=== PATIENT | female | born 1990 | race Two or more races ===

== ENCOUNTER 2019-05-17 13:28 | Observation (INO) | payer MEDICAID ==
[~2019-05-17] VITALS: Ht 165.1 cm; Wt 83.0 kg
[~2019-05-17 13:28] MED LIST: PREN-153 OR
[2019-05-17] MEDS ORDERED: LORA5SYP23 PO (14:13)
[2019-05-17] MEDS ORDERED: ACET-1156 PO (14:13)
[2019-05-17] MEDS ORDERED: LACTATED RINGER'S 1,000 ML IV ONE (14:45)
[2019-05-17] MEDS ORDERED: ceFAZolin 1GM 2 GM in D5W 5% 100 ML IV ONE (14:45)
== END 2019-05-17 19:32 | disposition home or self-care (01) | DRG 566 ==
LOC: LDRP 13:28
PROVIDERS: ADMIT Obstetrics & Gynecology; ATTEND Obstetrics & Gynecology
DX: O21.2 Late vomiting of pregnancy (principal); O26.893 Other specified pregnancy related conditions, third trimester; J40 Bronchitis, not specified as acute or chronic; O99.513 Diseases of the respiratory system complicating pregnancy, third trimester; R51 Headache; Z3A.37 37 weeks gestation of pregnancy
CPT/HCPCS: 59025; 76815; 81002; 96361; 96365; G0378; J0690; J7060; 96366

== ENCOUNTER 2019-05-30 06:08 | Inpatient (IN) | payer MEDICAID ==
[~2019-05-30] VITALS: Ht 165.1 cm; Wt 83.0 kg
[~2019-05-30 06:08] MED LIST changes: +ACET-1156 PO; +LORA5SYP23 PO
[2019-05-30] MEDS ORDERED: LACTATED RINGER'S 1,000 ML IV SCH (07:02)
[2019-05-30] MEDS ORDERED: DERMOPLAST 60ML BOTTLE TOP PRN (07:15)
[2019-05-30] MEDS ORDERED: LIDOCAINE 1% (LOCAL ANESTH.) PF 5ml SDV IJ ONE (07:15)
[2019-05-30] MEDS ORDERED: PHISODERM TOP SOLN 240ML BTL TOP PRN (07:15)
[2019-05-30] MEDS ORDERED: NALBUPHINE HCL 10 MG/1ml INJECTION IM PRN (07:15)
[2019-05-30] MEDS ORDERED: WITCH HAZEL-GLYCERIN PAD TOP PRN (07:15)
[2019-05-30] MEDS ORDERED: PENICILLIN G POT 5MIL/D5 50ML 50 ML IV ONE (07:15)
[2019-05-30] MEDS ORDERED: LACT. RINGERS/OXYTOCIN 20UNITS 1,000 ML IV ONE (07:18)
[2019-05-30] MEDS ORDERED: LACT. RINGERS/OXYTOCIN 20UNITS 1,000 ML IV SCH (07:20)
[2019-05-30] MEDS ORDERED: LIDOCAINE 2%HCL (LOCAL ANESTH.) INJ 20ML MDV ONE (07:23)
[2019-05-30] MEDS ORDERED: LIDOCAINE 2%HCL (LOCAL ANESTH.) INJ 20ML MDV ID ONE (07:30)
[2019-05-30 07:36] LABS: Basophils # (auto) 0.1 uL; Basophils % (auto) 0.5 % (0.0-2.0); Eosinophils # (auto) 0 uL; Eosinophils % (auto) 0.2 % (0.0-7.0); Hematocrit 37.5 % (36.0-46.0); Hemoglobin 12.6 g/dL (12.2-16.2); Lymphocytes # (auto) 1.4 uL; Lymphocytes % (auto) 11.4 % (10.0-50.0); Mean Corpuscular Hemoglobin 30.5 pg (28.0-32.0); Mean Corpuscular Hgb Conc. 33.6 g/dL (32.0-36.0); Mean Corpuscular Volume 90.9 fL (80.0-100.0); Monocytes # (auto) 0.8 uL; Monocytes % (auto) 6.4 % (0.0-12.0); Neutrophils # (auto) 10.3 uL; Neutrophils % (auto) 81.5 % (37.0-80.0); Platelet Count (auto) 292 10^3/uL (140-450); Red Blood Cells 4.12 10^6/uL (4.0-5.20); Red Cell Distribution Width 13.1 % (11.8-14.3); White Blood Cell 12.6 10^3/uL (4.4-10.8)
[2019-05-30] MEDS ORDERED: LACT. RINGERS/OXYTOCIN 20UNITS 500 ML IV ONE (07:46)
[2019-05-30 07:54] LABS: Potassium 3.5 mmol/L (3.5-5.1)
[2019-05-30 07:55] LABS: Albumin 2.7 g/dL (3.4-5.0); Calcium 8.3 mg/dL (8.5-10.1); INR 0.94 (0.9-1.15); Partial Thromboplastin Time 27.9 sec (23.64-32.05)
[2019-05-30 07:59] LABS: BUN/Creatinine Ratio 9.3; Bilirubin, Total 0.3 mg/dL (0.2-1.0); Total Protein 7.1 g/dL (6.4-8.2)
[2019-05-30] MEDS ORDERED: ACETAMINOPHEN 325 MG TAB PO PRN (08:00)
[2019-05-30 09:04] LABS: Urine Bacteria FEW /hpf (None Seen); Urine Blood 1+ /uL (Negative); Urine Specific Gravity 1.004 (1.001-1.035); Urine WBC 24 /hpf (0 - 5)
[2019-05-30 09:16] LABS: Alcohol, Urine < 3.0 mg/dL (0-5); Amphetamine Screen, Urine NEGATIVE (NEGATIVE); Barbiturate Scree,Urine NEGATIVE (NEGATIVE); Benzodiazephine Screen, Urine NEGATIVE (NEGATIVE); Cannabinoid Screen, Urine NEGATIVE (NEGATIVE); Cocaine Screen, Urine NEGATIVE (NEGATIVE); Opiate Scree,Urine NEGATIVE (NEGATIVE); Phencyclidine Screen, Urine NEGATIVE (NEGATIVE)
--- NOTE | 2019-05-30 09:38 | NUR ---
Ambulation: Patient OOB with standby assistance by RN. Patient ambulated to bathroom with steady gait. Patient able to void without difficulty 400 ml output noted. [facility] teaching provided with returned demonstration by patient. Clean gown provided and bed linen changed. Patient ambulated back to bed with steady gait and no distress noted.
[2019-05-30 10:52] VITALS: BP 92/55
--- NOTE | 2019-05-30 11:06 | NUR ---
REPORT RECEIVED ON STABLE PT.
--- NOTE | 2019-05-30 11:06 | NUR ---
Report given to Chikis Hines RN
[2019-05-30] MEDS ORDERED: PENICILLIN G POTASSIUM 2,500,000 UNITS in D5W 5% 50 ML IV SCH (11:15)
[2019-05-30 15:00] VITALS: BP 117/56
[2019-05-30] MEDS: IBUPROFEN 600 MG TAB PO PRN (16:34)
--- NOTE | 2019-05-30 19:00 | NUR ---
Teaching: Discussed benefits of and risks associated with not . Discussed different positions, proper latch, feeding cues, and baby-led . Provided information of medication side effects related to . All questions and concerns addressed at this time. Patient verbalized understanding of information.
[2019-05-30 19:02] VITALS: BP 96/55
[2019-05-30 23:00] VITALS: BP 102/57
[2019-05-31 03:00] VITALS: BP 99/51
[2019-05-31] MEDS: IBUPROFEN 600 MG TAB PO PRN (04:57)
[2019-05-31 06:06] LABS: RPR Non Reactive (Non Reactive)
[2019-05-31 06:40] VITALS: BP 101/61
[2019-05-31 11:30] VITALS: BP 103/65
--- NOTE | 2019-05-31 12:40 | NUR ---
Discharge: Discharge instructions given as ordered. Pt encouraged to follow up with TECHNICIAN TRAINEE as instructed. All questions and concerns addressed. Patient verbalized understanding. Medication reconciliation completed and copy given to patient. Patient encouraged to prepare to depart unit.
--- NOTE | 2019-05-31 13:55 | NUR ---
Discharge: Patient taken to vehicle ambulatory via steady gait, pt declined wheelchair with all personal belongings, accompanied by staff and spouse. No distress noted at time of departure, no adverse changes in status since initial assessment.
== END 2019-05-31 13:55 | disposition home or self-care (01) | DRG 560 ==
LOC: LDRP 06:08 → OBSVTOIN 06:08 → LDRP 06:35
PROVIDERS: ADMIT Specialist; ATTEND Specialist
PROC: 10E0XZZ Delivery of Products of Conception, External Approach (ICD-10-PCS; principal; 2019-05-30)
DX: O62.3 Precipitate labor (principal); O69.1XX0 Labor and delivery complicated by cord around neck, with compression, not applicable or unspecified; O77.0 Labor and delivery complicated by meconium in amniotic fluid; Z37.0 Single live birth; Z3A.39 39 weeks gestation of pregnancy
CPT/HCPCS: 36415; 59025; 59409; 80053; 80307; 81001; 81002; 84112; 85025; 85610; 85730; 86592; 86850; 86900; 86901; 96365; 96366; G0378; J2540; J2590; J7060

== ENCOUNTER → 2022-03-03 | Outpatient (CLI) | payer MEDICAID ==
[~2022-03-03] MED LIST changes: -PREN-153 OR; +PREN1TAB71 OR
[2022-03-03 12:03] LABS: Hematocrit 39.2 % (36.0-46.0); Hemoglobin 12.6 g/dL (12.2-16.2); Mean Corpuscular Hemoglobin 28.4 pg (28.0-32.0); Mean Corpuscular Hgb Conc. 32.3 g/dL (32.0-36.0); Mean Corpuscular Volume 87.9 fL (80.0-100.0); Red Blood Cells 4.46 10^6/uL (4.0-5.20); Red Cell Distribution Width 13.8 % (11.8-14.3); White Blood Cell 8.5 10^3/uL (4.4-10.8)
[2022-03-03 12:37] LABS: Basophils % (manual) 0 (0.0-2.0); Blast Cells 0; Myelocytes % 0; Promyelocytes % 0; Reactive Lymphocytes 0
[2022-03-03 13:05] LABS: Band Neutrophils % (manual) 8; Eosinophils % (manual) 5 (0-7); Lymphocytes % (manual) 15 (10.0-50.0); Metamyelocytes % 1; Monocytes % (manual) 4 (0-12)
[2022-03-04 06:06] LABS: RPR Non Reactive (Non Reactive)
== END | disposition home or self-care (01) ==
LOC: LAB 11:07
PROVIDERS: ATTEND Obstetrics & Gynecology
DX: Z34.80 Encounter for supervision of other normal pregnancy, unspecified trimester (principal); Z31.430 Encounter of female for testing for genetic disease carrier status for procreative management; Z36.0 Encounter for antenatal screening for chromosomal anomalies; N39.0 Urinary tract infection, site not specified; Z3A.00 Weeks of gestation of pregnancy not specified
CPT/HCPCS: 36415; 83036; 84112; 84702; 85007; 85027; 86592; 86703; 86762; 86850; 86900; 86901; 87086; 87340

== ENCOUNTER → 2022-07-25 | Outpatient (CLI) | payer MEDICAID ==
[2022-07-25 09:30] LABS: Basophils # (auto) 0 10 ^3/uL (0-0.2); Basophils % (auto) 0.2 % (0.0-2.0); Eosinophils # (auto) 0 10 ^3/uL (0-0.8); Eosinophils % (auto) 0.2 % (0.0-7.0); Hematocrit 36.9 % (36.0-46.0); Hemoglobin 12.4 g/dL (12.2-16.2); Lymphocytes % (auto) 10.7 % (10.0-50.0); Mean Corpuscular Hemoglobin 30.7 pg (28.0-32.0); Mean Corpuscular Hgb Conc. 33.8 g/dL (32.0-36.0); Monocytes # (auto) 0.4 10 ^3/uL (0-1.3); Monocytes % (auto) 4.1 % (0.0-12.0); Neutrophils % (auto) 84.8 % (37.0-80.0); Red Blood Cells 4.05 10^6/uL (4.0-5.20); Red Cell Distribution Width 13.8 % (11.8-14.3); White Blood Cell 9.4 10^3/uL (4.4-10.8)
== END | disposition home or self-care (01) ==
LOC: LAB 09:09
PROVIDERS: ATTEND Obstetrics & Gynecology
DX: Z34.80 Encounter for supervision of other normal pregnancy, unspecified trimester (principal); Z3A.00 Weeks of gestation of pregnancy not specified
CPT/HCPCS: 36415; 82951; 83036; 85025

== ENCOUNTER 2025-01-31 16:23 | Inpatient (IN) | payer MEDICAID ==
[~2025-01-31] VITALS: Ht 167.6 cm; Wt 52.7 kg
[~2025-01-31 16:23] MED LIST changes: -ACET-1156 PO; +ACET-1881 PO
--- NOTE | 2025-01-31 16:37 | ED.PDOC ---
History of Present Illness HPI Comments 35 year old female presents to the ED via EMS with a chief complaint of near syncope onset today (01/31/25). Per EMS, patient was in school line, waiting to brick picker child from school when she began seeing spots, felt lightheaded, sat down. School staff gave patient water, slight improvement of symptoms. Patient has stage 4 colon cancer, had a colon resection May 2024. Currently on chemotherapy, last chemo was 12/31/24. No other symptoms or modifying factors present at this time. Time Seen by MD: 16:30 Primary Care Provider: FILIBERTO Reviewed Notes: Medications, Allergies Allergies: Coded Allergies: Prochlorperazine (Verified Allergy, Intermediate, 01/31/25) Home Meds Reported Medications Acetaminophen (Acetaminophen) 325 Mg Tab, 325 MG PO Q4HP PRN for MILD PAIN for 30 Days, MG 0 Refills 05/17/19 Loratadine (Claritin) 5 Mg/5 Ml Syp, 5 ML PO DAILY, #150 ML 2 Refills 05/17/19 Vit W/ Ferrous Fumara (PNV PLUS MULTIVI) Plus Tab, 1 OR, TAB 03/26/16 Information Source: Patient, Emergency Med Personnel Mode of Arrival: EMS Severity: Moderate Timing: Hours Duration: Since onset Prehospital treatment: None Past Medical History PAST MEDICAL HISTORY: Cancer Surgical History (Other): colon resection CORRECTIONS CASEWORKER History: No Pertinent CORRECTIONS CASEWORKER History Family History Family History: Unknown Social History Smoker: Non-Smoker Alcohol: Denies ETOH Use Drugs: Denies Drug Use Lives In: Home Constitutional: denies: chills, diaphoresis, fatigue, fever, malaise, sweats, weakness, others EENTM: denies: blurred vision, double vision, ear bleeding, ear discharge, ear drainage, ear pain, ear ringing, eye pain, eye redness, hearing loss, mouth pain, mouth swelling, nasal discharge, nose bleeding, nose congestion, nose pain, photophobia, tearing, throat pain, throat swelling, voice changes, others Respiratory: denies: cough, hemoptysis, orthopnea, SOB at rest, shortness of breath, SOB with excertion, stridor, wheezing, others Cardiovascular: denies: chest pain, dizzy spells, diaphoresis, Dyspnea on exertion, edema, irregular heart beat, left arm pain, lightheadedness, palpitations, PND, syncope, others Gastrointestinal: denies: abdomen distended, abdominal pain, blood streaked bowels, constipated, diarrhea, dysphagia, difficulty swallowing, hematemesis, melena, nausea, poor appetite, poor fluid intake, rectal bleeding, rectal pain, vomiting, others Genitourinary: denies: abnormal vagina bleeding, burning, dyspareunia, dysuria, flank pain, frequency, hematuria, incontinence, pain, , vagina discharge, urgency, others Neurological: reports: others (syncope); denies: dizziness, fainting, headache, left sided numbness, left sided weakness, numbness, paresthesia, pre-existing deficit, right sided numbness, right sided weakness, seizure, speech problems, tingling, tremors, weakness Musculoskeletal: denies: back pain, gout, joint pain, joint swelling, muscle pain, muscle stiffness, neck pain, others Integumetry: denies: bruises, change in color, change in hair/nails, dryness, laceration, lesions, lumps, rash, wounds, others Allergic/Immunocompromised: denies: Difficulty Healing, Frequent Infections, Hives, Itching, others Hematologic/Lymphatic: denies: anemia, blood clots, easy bleeding, easy bruising, swollen glands, others Endocrine: denies: excessive hunger, excessive sweating, excessive thirst, excessive urination, flushing, intolerance to cold, intolerance to heat, unexplained weight gain, unexplained weight loss, others Psychiatric: denies: anxiety, bipolar disorder, depression, hopeless, panic disorder, schizophrenia, sleepless, suicidal, others All Other Systems: Reviewed and Negative Physical Exam General Appearance: Moderate Distress, Normal HEENT: Normal ENT Inspection, Pharynx Normal, TMs Normal Neck: Full Range of Motion, Non-Tender, Normal, Normal Inspection Respiratory: Chest Non-Tender, Lungs Clear, No Accessory Muscle Use, No Respiratory Distress, Normal Breath Sounds Cardiovascular: No Edema, No JVD, No Murmur, No Gallop, Normal Peripheral Pulses, Regular Rate/Rhythm Breast Exam: Deferred Gastrointestinal: No Organomegaly, Non Tender, No Pulsatile Mass, Normal Bowel Sounds, Soft Genitalia: Deferred Pelvic: Deferred Rectal: Deferred Extremities: No calf tenderness, Normal capillary refill, Normal inspection, Normal range of motion, Non-tender, No pedal edema Musculoskeletal : Apperance: Normal Neurologic: Alert, nutrition aides teacher II-XII nml as Tested, No Motor Deficits, Normal Affect, Normal Mood, No Sensory Deficits Cerebellar Function: Normal Reflexes: Normal Skin: Dry, Normal Color, Warm Peripheral Pulses: 3+ Radial (R), 3+ Radial (L) Lymphatic: No Adenopathy Was a procedure done? Was a procedure done?: No EKG EKG : Pulse Rate (adult): 80 Cardiac Rhythm: NSR Differential Dx Considerations may include: Anemia Electrolyte imbalance X-Ray, Labs, Meds, VS Vital Signs Date Time Temp Pulse Resp B/P (MAP) Pulse Ox O2 Delivery O2 Flow Rate FiO2 01/31/25 17:35 97.9 92 20 111/72 (85) 99 97.9 01/31/25 17:35 92 20 99 Room Air 01/31/25 16:40 97.7 84 20 109/72 95 97.7 01/31/25 16:37 80 01/31/25 16:30 82 Lab Test 01/31/25 17:05 Range/Units White Blood Count 8.3 4.4-10.8 10^3/uL Red Blood Count 4.64 4.0-5.20 10^6/uL Hemoglobin 11.6 L 12.2-16.2 g/dL Hematocrit 35.3 L 36.0-46.0 % Mean Corpuscular Volume 76.1 L 80.0-100.0 fL Mean Corpuscular Hemoglobin 25.0 L 28.0-32.0 pg Mean Corpuscular Hemoglobin Concent 32.9 32.0-36.0 g/dL Red Cell Distribution Width 23.1 H 11.8-14.3 % Platelet Count 324 140-450 10^3/uL Mean Platelet Volume 7.0 6.9-10.8 fL Neutrophils (%) (Auto) 76.6 37.0-80.0 % Lymphocytes (%) (Auto) 16.2 10.0-50.0 % Monocytes (%) (Auto) 5.7 0.0-12.0 % Eosinophils (%) (Auto) 1.0 0.0-7.0 % Basophils (%) (Auto) 0.5 0.0-2.0 % Neutrophils # (Auto) 6.4 1.6-8.6 10 ^3/uL Lymphocytes # (Auto) 1.3 0.4-5.4 10 ^3/uL Monocytes # (Auto) 0.5 0-1.3 10 ^3/uL Eosinophils # (Auto) 0.1 0-0.8 10 ^3/uL Basophils # (Auto) 0 0-0.2 10 ^3/uL Nucleated Red Blood Cells 0.0 % Sodium Level 140 136-145 mmol/L Potassium Level 3.8 3.5-5.1 mmol/L Chloride Level 105 98-107 mmol/L Carbon Dioxide Level 27 20-31 mmol/L Anion Gap 8 5-15 Blood Urea Nitrogen Pending Creatinine Pending Glomerular Filtration Rate Calc Pending BUN/Creatinine Ratio Pending Serum Glucose Pending Calcium Level 9.4 8.7-10.4 mg/dL Troponin I High Sensitivity Pending Current Medications Medications (Trade) Dose Ordered Sig/Rex Route Start Time Stop Time Status Last Admin Sodium Chloride 1,000 ml @ 1,000 mls/hr Q1H ONCE IV 01/31/25 16:45 01/31/25 17:44 01/31/25 17:38 Patient alert. Possible syncope. Vitals stable. Answering questions. Possible dehydration. Establish intravenous access. Was given fluids. Explained to the patient. Was told to follow up with her primary care physician. Was told to come back if there is any problem. Followed by night physician. Time of 1ST Reevaluation: 17:00 Reevaluation 1ST: Unchanged Patient Education/Counseling: Diagnosis, Treatment, Prognosis Family Education/Counseling: No Family Present SEPSIS Sepsis Screen Physician Orders Head Without Contrast (01/31/25 16:33) Troponin-I Hs (01/31/25 16:33) Urinalysis (01/31/25 16:33) Basic Metabolic Panel (01/31/25 16:33) Sodium Chloride 0.9% (01/31/25 16:45) Troponin-I Hs (01/31/25 17:33) Troponin-I Hs (01/31/25 19:33) Electrocardigram (01/31/25 16:34) Saline Lock (01/31/25 16:59) Vital Signs Date Time Temp Pulse Resp B/P (MAP) Pulse Ox O2 Delivery O2 Flow Rate FiO2 01/31/25 17:35 97.9 92 20 111/72 (85) 99 97.9 01/31/25 17:35 92 20 99 Room Air 01/31/25 16:40 97.7 84 20 109/72 95 97.7 01/31/25 16:37 80 01/31/25 16:30 82 Laboratory Tests Test 01/31/25 17:05 White Blood Count 8.3 10^3/uL (4.4-10.8) Medications Medications Dose Ordered Sig/Rex Route Start Time Stop Time Status Last Admin Dose Admin Sodium Chloride 1,000 ml @ 1,000 mls/hr Q1H ONCE IV 01/31/25 16:45 01/31/25 17:44 01/31/25 17:38 Departure 1 Departure Time of Disposition: 16:50 Impression: Primary Impression: Dehydration Disposition: 01 HOME / SELF CARE / HOMELESS Condition: Good Discharged With: Self Critical Care Note Critical Care Time?: No Stability Stability form required: No Heart Score Heart Score: Heart Score Response (Comments) Value History Slightly Suspicious 0 EKG Normal 0 Age <45 0 Risk Factors No known risk factors 0 Troponin Normal limit 0 Total 0 I personally scribed for PREET HATFIELD MD ([email or web address]) on 01/31/25 at 16:37. Electronically submitted by Tereza Morillo ([email or web address]). PREET HATFIELD MD Jan 31, 2025 16:37
[2025-01-31 17:21] LABS: Hemoglobin 11.6 g/dL (12.2-16.2); Nucleated Red Blood Cells % 0.0 %
[2025-01-31 17:23] LABS: Hematocrit 35.3 % (36.0-46.0); Mean Corpuscular Hemoglobin 25.0 pg (28.0-32.0); Mean Corpuscular Volume 76.1 fL (80.0-100.0)
[2025-01-31 17:28] LABS: Chloride 105 mmol/L (98-107); Potassium 3.8 mmol/L (3.5-5.1); Sodium 140 mmol/L (136-145)
[2025-01-31 17:29] LABS: Anion Gap 8 (5-15); Carbon Dioxide 27 mmol/L (20-31)
[2025-01-31 17:30] LABS: Calcium 9.4 mg/dL (8.7-10.4)
[2025-01-31 17:35] LABS: BUN/Creatinine Ratio 13.2 (10.0-20.0); Blood Urea Nitrogen 14 mg/dL (9-23); Glucose 88 mg/dL (74-106)
[2025-01-31] MEDS: SODIUM CHLORIDE 0.9% 1,000 ML IV ONE ×2 (17:38→22:17)
--- NOTE | 2025-01-31 17:38 | DVH ---
EXAM: CT HEAD WITHOUT CONTRAST INDICATION: syncope TECHNIQUE: CT of the head without intravenous contrast. Radiation Dose Information: CT Dose: CTDI volume is 50.4 mGy. Dose-length product is 807.76 mGy*cm The dose indicators for CT are the volume Computed Tomography (CT) Dose Index (CTDIvol) and the Dose Length Product (DLP), and are measured in units of mGy and mGy-cm, respectively. These indicators are not patient dose, but values generated from the CT scanner acquisition factors. The report includes radiation exposure data for exposures received during this examination. COMPARISON: None FINDINGS: There is no evidence of acute intracranial hemorrhage, extra-axial collection, mass effect, midline s hift, herniation or hydrocephalus. The ventricles, sulci and cisterns are age appropriate. The coreas-white differentiation is intact. Patchy periventricular and subcortical white matter hypoattenuation is nonspecific but may be related to small vessel ischemic disease. Minimal mucosal thickening anterior wall right maxillary sinus and mastoid air cells are clear. The surrounding soft tissues and osseous structures are unremarkable. IMPRESSION: 1. No acute intracranial abnormality.
[2025-01-31 19:34] LABS: Urine Protein, UAD Negative (Negative)
--- NOTE | 2025-01-31 19:54 | DVHHP2 ---
Admitting Diagnosis: Syncope History of Present Illness 35 year old female presents to the ED via EMS with a chief complaint of near syncope onset today (01/31/25). Per EMS, patient was in school line, waiting to hop picker child from school when she began seeing spots, felt lightheaded, sat down. School staff gave patient water, slight improvement of symptoms. Patient has stage 4 colon cancer, had a colon resection May 2024. Currently on chemotherapy, last chemo was 12/31/24. No other symptoms or modifying factors present at this time. PAST MEDICAL HISTORY: Cancer Surgical History (Other): colon resection NURSE MIDWIFE/CLINICAL INSTRUCTOR History: No Pertinent NURSE MIDWIFE/CLINICAL INSTRUCTOR History Family History Family History: Unknown Social History Smoker: Non-Smoker Alcohol: Denies ETOH Use Drugs: Denies Drug Use Lives In: Home Patient Family History: Patient reports no known family medical history. Allergies: Coded Allergies: Prochlorperazine (Verified Allergy, Intermediate, 01/31/25) Home Meds Reported Medications Acetaminophen (Acetaminophen) 325 Mg Tab, 325 MG PO Q4HP PRN for MILD PAIN for 30 Days, MG 0 Refills 05/17/19 Loratadine (Claritin) 5 Mg/5 Ml Syp, 5 ML PO DAILY, #150 ML 2 Refills 05/17/19 Vit W/ Ferrous Fumara (PNV PLUS MULTIVI) Plus Tab, 1 OR, TAB 03/26/16 Current Medications Current Medications Medications (Trade) Dose Ordered Sig/Rex Route PRN Reason Start Time Stop Time Status Last Admin Sodium Chloride (Saline Lock Ns) 10 ml Q8HR IV 01/31/25 22:00 UNV Docusate Sodium (Colace Capsule) 100 mg BIDPRN PRN PO FOR CONSTIPATION 01/31/25 20:30 UNV Acetaminophen (Tylenol Tablet) 650 mg Q6HP PRN PO PAIN SCALE 1-3 OR TEMP>100.4 01/31/25 20:30 UNV Acetaminophen/ Hydrocodone Bitart ([place] 5/325MG Tab) 1 tab Q4HP PRN PO MODERATE PAIN (4-6 PAIN SCALE) 01/31/25 20:30 UNV Ondansetron HCl (Zofran) 4 mg Q4HP PRN IV NAUSEA / VOMITING 01/31/25 20:30 UNV Enoxaparin Sodium (Lovenox) 40 mg DAILY SC 02/01/25 10:00 UNV Vital Signs Vital Signs Date Time Temp Pulse Resp B/P (MAP) Pulse Ox O2 Delivery O2 Flow Rate FiO2 01/31/25 17:35 97.9 92 20 111/72 (85) 99 97.9 01/31/25 17:35 Room Air Physical Exam gen 35 y.o. woman, sitting on chair. No apparent distress HEENT-atraumatic, normocephalic Heart-regular rate and rhythm Lungs clear to auscultate Abdomen soft, nontender nondistended Musculoskeletal-no edema cyanosis Neuro-AO x3, no focal deficit SEPSIS Sepsis Screen Date sepsis recognized/suspect: Jan 31, 2025 Time Sepsis recognized/suspect: 1644 Recent Procedure: No On Antibiotic Therapy: No Respiratory Rate >20: No Heart Rate >90: No Temp<36 C (96.8 F) or >38.3 C: No SBP <90 or MAP <65 mmHG: No New Acute Mental Status Change: No Is the patient on CPAP, BIPAP,: No Physician Orders Head Without Contrast (01/31/25 16:33) Troponin-I Hs (01/31/25 19:33) Electrocardigram (01/31/25 16:34) Saline Lock (01/31/25 16:59) Brain Head Wo Contrast (01/31/25 20:26) Echo 2d Mode Cardiac Dop (01/31/25 20:26) Carotid Duplx W Color Dop (01/31/25 20:26) * Neurology Consult (01/31/25 20:26) Neuro Checks Per Unit Protocol (01/31/25 20:27) Eeg Awake/Sleep/Act (01/31/25 20:27) Admit (01/31/25 20:27) Code Status (01/31/25 20:27) Vital Signs .PER UNIT PROTOCOL (01/31/25 20:27) Review Orders With Adm.Md (01/31/25 20:27) Encourage Activity As Tolerate (01/31/25 20:27) Regular Diet (02/01/25 Breakfast) Sodium Chloride Lock (Saline Lock Ns) (01/31/25 22:00) Docusate Sodium Capsule (Colace Capsule) (01/31/25 20:30) Acetaminophen Tablet (Tylenol Tablet) (01/31/25 20:30) Notify Md Of Changes From Base (01/31/25 20:27) Advance Directive (01/31/25 20:27) Patient Condition (01/31/25 20:27) Allergies (01/31/25 20:27) Hydrocodone-Acet 5/325mg Tab ([place] 5/32 (01/31/25 20:30) Ondansetron Hcl (Zofran) (01/31/25 20:30) Enoxaparin Sodium (Lovenox) (02/01/25 10:00) Comprehensive Metabolic Panel (02/01/25 05:00) Comprehensive Metabolic Panel (02/02/25 05:00) Comprehensive Metabolic Panel (02/03/25 05:00) Comprehensive Metabolic Panel (02/04/25 05:00) Comprehensive Metabolic Panel (02/05/25 05:00) Complete Blood Count (02/01/25 05:00) Complete Blood Count (02/02/25 05:00) Complete Blood Count (02/03/25 05:00) Complete Blood Count (02/04/25 05:00) Complete Blood Count (02/05/25 05:00) Vital Signs Date Time Temp Pulse Resp B/P (MAP) Pulse Ox O2 Delivery O2 Flow Rate FiO2 01/31/25 17:35 97.9 92 20 111/72 (85) 99 97.9 01/31/25 17:35 92 20 99 Room Air 01/31/25 16:40 97.7 84 20 109/72 95 97.7 01/31/25 16:37 80 01/31/25 16:30 82 Laboratory Tests Test 01/31/25 17:05 White Blood Count 8.3 10^3/uL (4.4-10.8) Medications Medications Dose Ordered Sig/Rex Route Start Time Stop Time Status Last Admin Dose Admin Aspirin 325 mg ONCE ONCE PO 01/31/25 18:00 01/31/25 18:01 DC 01/31/25 18:02 Sodium Chloride 1,000 ml @ 1,000 mls/hr Q1H ONCE IV 01/31/25 16:45 01/31/25 17:44 DC 01/31/25 17:38 Results Labs Test 01/31/25 19:54 01/31/25 17:31 01/31/25 17:05 Range/Units Urine Color Colorless Yellow Urine Clarity Clear Clear Urine pH 6.5 5.0-9.0 Urine Specific [place] 1.003 1.001-1.035 Urine Protein Negative Negative Urine Ketones Negative Negative Urine Blood Negative Negative /uL Urine Nitrite Negative Negative Urine Bilirubin Negative Negative Urine Urobilinogen Normal Negative mg/dL Urine Leukocyte Esterase Negative Negative /uL Urine RBC None seen 0 - 4 /hpf Urine Microscopic WBC 3 0-5 /HPF Urine Squamous Epithelial Cells Mod <5 /hpf Urine Bacteria None seen None Seen /hpf Urine Glucose Normal Normal mg/dL White Blood Count 8.3 4.4-10.8 10^3/uL Red Blood Count 4.64 4.0-5.20 10^6/uL Hemoglobin 11.6 L 12.2-16.2 g/dL Hematocrit 35.3 L 36.0-46.0 % Mean Corpuscular Volume 76.1 L 80.0-100.0 fL Mean Corpuscular Hemoglobin 25.0 L 28.0-32.0 pg Mean Corpuscular Hemoglobin Concent 32.9 32.0-36.0 g/dL Red Cell Distribution Width 23.1 H 11.8-14.3 % Platelet Count 324 140-450 10^3/uL Mean Platelet Volume 7.0 6.9-10.8 fL Neutrophils (%) (Auto) 76.6 37.0-80.0 % Lymphocytes (%) (Auto) 16.2 10.0-50.0 % Monocytes (%) (Auto) 5.7 0.0-12.0 % Eosinophils (%) (Auto) 1.0 0.0-7.0 % Basophils (%) (Auto) 0.5 0.0-2.0 % Neutrophils # (Auto) 6.4 1.6-8.6 10 ^3/uL Lymphocytes # (Auto) 1.3 0.4-5.4 10 ^3/uL Monocytes # (Auto) 0.5 0-1.3 10 ^3/uL Eosinophils # (Auto) 0.1 0-0.8 10 ^3/uL Basophils # (Auto) 0 0-0.2 10 ^3/uL Nucleated Red Blood Cells 0.0 % Sodium Level 140 136-145 mmol/L Potassium Level 3.8 3.5-5.1 mmol/L Chloride Level 105 98-107 mmol/L Carbon Dioxide Level 27 20-31 mmol/L Anion Gap 8 5-15 Blood Urea Nitrogen 14 9-23 mg/dL Creatinine 1.06 H 0.550-1.02 mg/dL Glomerular Filtration Rate Calc 70 >90 mL/min BUN/Creatinine Ratio 13.2 10.0-20.0 Serum Glucose 88 74-106 mg/dL Calcium Level 9.4 8.7-10.4 mg/dL Primary Diagnosis Syncope rule out seizure Elevated troponin rule out ACS Plan Patient is colon cancer currently now on treatments. Check brain MRI to rule out brain Mets Check carotid Doppler to rule out carotid stenosis Check echo of the heart for syncope and elevated troponin Trend troponin until plateau If elevated repeat EKG IV fluids for hydration Neuro check per floor protocol Neurology consult Full code Regular diet DVT prophylaxis No GI prophylaxis needed Plan discussed with: Patient Problems List: (1) Colon cancer (2) Dehydration (3) Dehydration Status: Acute Date of Service: Jan 31, 2025 Billing Provider: ALVIN CHU MD Common Visit Codes: [id number] INP/OBS CARE (HIGH) ALVIN CHU MD Jan 31, 2025 19:54
[2025-01-31] MEDS ORDERED: ONDANSETRON HCL 4 MG/2 ML VIAL IV PRN (20:30)
[2025-01-31] MEDS ORDERED: HYDROcodone-ACET 5/325MG TAB PO PRN (20:30)
[2025-01-31] MEDS ORDERED: DOCUSATE SOD 100 MG CAP PO PRN (20:30)
[2025-01-31] MEDS ORDERED: ACETAMINOPHEN 325 MG TAB PO PRN (20:30)
--- NOTE | 2025-01-31 20:52 | DVH ---
Carotid Duplex Date: 01/31/2025 08:24 PM Clinical History: Syncope Comparison: None Technique: Duplex Doppler evaluation of the extracranial carotid and vertebral arteries including col or Doppler and spectral/pulsed waveform analysis was performed. Findings: RIGHT SIDE: The peak systolic velocities are 86 cm/s in the distal CCA and 0 8 cm/s in the proximal ICA.The ICA/C CA ratio is less than 2. The external carotid artery is patent with peak systolic velocity of 103 cm/s proximally. There is appropriate antegrade flow in the right vertebral artery. LEFT SIDE: The peak systolic velocities are 82 cm/s in the distal CCA and 90 cm/s in the proximal ICA.. The ICA/ CCA ratio is less than 2. The external carotid artery is patent with peak systolic velocity of 66 cm/s proximally. There is appropriate antegrade flow in the left vertebral artery. IMPRESSION: 1. No hemodynamically significant stenosis noted in the right carotid system. 2. No hemodynamically significant stenosis noted in the left carotid system. 3. Reference: Radiology 2003; 229:[id number]
[2025-01-31] MEDS: SODIUM CHLOR 0.9% PF (SALINE LOCK) 10ML VIAL/SYR IV SCH (22:17)
[2025-02-01 04:00] LABS: Hematocrit 32.9 % (36.0-46.0); Hemoglobin 11.2 g/dL (12.2-16.2); Mean Corpuscular Hemoglobin 26.1 pg (28.0-32.0); Mean Corpuscular Volume 76.8 fL (80.0-100.0); Nucleated Red Blood Cells % 0.0 %
[2025-02-01 04:29] LABS: Alanine Aminotransferase 14 U/L (7-40); Albumin 4.3 g/dL (3.2-4.8); Alkaline Phosphatase 87 U/L (46-116); Anion Gap 11 (5-15); BUN/Creatinine Ratio 11.5 (10.0-20.0); Bilirubin, Total 0.7 mg/dL (0.2-1.0); Blood Urea Nitrogen 10 mg/dL (9-23); Calcium 9.2 mg/dL (8.7-10.4); Carbon Dioxide 23 mmol/L (20-31); Chloride 105 mmol/L (98-107); Glucose 93 mg/dL (74-106); Potassium 3.6 mmol/L (3.5-5.1); Sodium 139 mmol/L (136-145); Total Protein 7.5 g/dL (5.7-8.2)
[2025-02-01 11:25] VITALS: BP 96/64; PULSE 81; RESP 16; TEMP 97.5; O2SAT 100
[2025-02-01] MEDS: ENOXAPARIN SOD 40 MG/0.4 ML SYRINGE SC SCH (11:30)
--- NOTE | 2025-02-01 13:02 | DVHPN2 ---
Reviewed: Care Plan, H&P, Labs, Medications, Previous Orders, Radiology Changes from previous H/P or p: No Changes Objective Vitals Vital Signs Date Time Temp Pulse Resp B/P (MAP) Pulse Ox O2 Delivery O2 Flow Rate FiO2 02/01/25 11:25 97.5 81 16 96/64 (75) 100 97.5 01/31/25 17:35 Room Air Intake/Output Intake and Output 02/01/25 07:00 Intake Total 1000 ml Balance 1000 ml Intake IV Total 1000 ml Medications Current Medications Medications Dose Ordered Sig/Rex Route Start Time Stop Time Status Last Admin Dose Admin Sodium Chloride 10 ml Q8HR IV 01/31/25 22:00 02/01/25 06:08 10 ML Docusate Sodium 100 mg BIDPRN PRN PO 01/31/25 20:30 Acetaminophen 650 mg Q6HP PRN PO 01/31/25 20:30 Acetaminophen/ Hydrocodone Bitart 1 tab Q4HP PRN PO 01/31/25 20:30 Ondansetron HCl 4 mg Q4HP PRN IV 01/31/25 20:30 Enoxaparin Sodium 40 mg DAILY SC 02/01/25 10:00 02/01/25 11:30 40 MG Laboratory Results Laboratory Tests 02/01/25 03:38 Chemistry Test 01/31/25 17:05 02/01/25 03:38 Calcium Level 9.4 mg/dL (8.7-10.4) 9.2 mg/dL (8.7-10.4) Albumin 4.3 g/dL (3.2-4.8) Total Protein 7.5 g/dL (5.7-8.2) LFT Test 02/01/25 03:38 Alanine Aminotransferase (ALT) 14 U/L (7-40) Alkaline Phosphatase 87 U/L (46-116) Aspartate Amino Transferase (AST) 17 U/L (13-40) Total Bilirubin 0.7 mg/dL (0.2-1.0) Urinalysis Test 01/31/25 17:31 Urine Color Colorless (Yellow) Urine Clarity Clear (Clear) Urine pH 6.5 (5.0-9.0) Urine Specific [place] 1.003 (1.001-1.035) Urine Protein Negative (Negative) Urine Ketones Negative (Negative) Urine Blood Negative /uL (Negative) Urine Nitrite Negative (Negative) Urine Bilirubin Negative (Negative) Urine Urobilinogen Normal mg/dL (Negative) Urine Leukocyte Esterase Negative /uL (Negative) Urine RBC None seen /hpf (0 - 4) Urine Microscopic WBC 3 /HPF (0-5) Urine Squamous Epithelial Cells Mod /hpf (<5) Urine Bacteria None seen /hpf (None Seen) Urine Glucose Normal mg/dL (Normal) Labs and/or images reviewed: Labs reviewed by me, Image(s) reviewed by me Assessment/Plan Assessment/Plan Syncope possibly secondary to dehydrate CT head negative carotid ultrasound negative Acute dehydration patient is refusing IV fluids History of stage IV colon cancer status post colon resection May 2024, currently on chemo last chemo 12/31/2024 Elevated troponin [address]-elevation [place] type 2 Cardiology consult Time spent 48 minutes Plan discussed with: Patient Date of Service: Feb 01, 2025 Billing Provider: FELICIA MCDONNELL MD Common Visit Codes: [id number] INP/OBS CARE(HIGH) FELICIA MCDONNELL MD Feb 01, 2025 13:02
--- NOTE | 2025-02-01 13:10 | DVH ---
CLINICAL INDICATION: Rule out brain metastases, CVA. Indication for recent CT head was syncope. COMPARISON: CT HEAD WITHOUT CONTRAST on DOS: 01/31/25 TECHNIQUE: Multisequence multiplanar MRI images of the brain were obtained without contrast. FINDINGS: No acute infarct or hemorrhage. No mass or midline shift. Small focus of FLAIR hyperintens e signal in the left frontal lobe subcortical white matter measuring up to 0.4 cm. Ventricles and sul ci are within normal limits. Basal cisterns are patent. Cerebellum, brainstem, and midline structures are within normal limits. Paranasal sinuses are clear. Orbits are grossly unremarkable. IMPRESSION: 1. No evidence of acute intracranial abnormality. 2. Small focus of FLAIR hyperintense signal in the left frontal lobe subcortical white matter is nons pecific, may be small focus of chronic microangiopathy or sequelae of migraine headaches or other vas cular phenomena. Demyelinating disease would be less likely, but not excluded in the appropriate clin ical setting. 3. Limited evaluation for brain metastases on noncontrast enhanced exam. No obvious intracranial mass .
--- NOTE | 2025-02-01 14:16 | DVHINCON2 ---
GORDO MIRELES [facility] 02/01/25 1416: Date Seen: Feb 01, 2025 Referring Physician MD Bakari Reason for Consultation Elevated troponin levels History of Present Illness This is a pleasant 35-year-old female who presented to the emergency room via EMS with a chief complaint of near syncopal event. At time of assessment the patient was found A&O x4. The patient reports she was peaking at her son from school and as she was ambulating she developed a sudden onset of visual disturbances associated with dizziness which prompted bystanders to call 911. Denies loss of consciousness. The patient with colorectal cancer stage IV states she had a similar episode of a near syncopal event after her 1st round of chemotherapy on 10/2024 with latest chemotherapy session completed on 12/31/2024. Denies any further dizziness or visual disturbances. Denies chest pain, palpitations, diaphoresis, shortness of breath, or syncopal events. A 12 lead electrocardiogram was obtained at bedside revealing a normal sinus rhythm with a evidence of ischemia. Serial troponin levels peaked at 69 ng/L. Only significant medical history includes colorectal cancer stage IV status post resection with current chemotherapy and follow-up with Oncology at [facility]. Past Medical History Past medical history reviewed. No other significant than mentioned above. Past Surgical History Colon resection, 05/2024 Family History: Patient reports no known family medical history. Family History Family history reviewed. Not significant for cardiovascular disease. Social History Denies the use of illicit drugs, alcohol, or tobacco use. Allergies: Coded Allergies: Prochlorperazine (Verified Allergy, Intermediate, 01/31/25) Home Meds Reported Medications Acetaminophen (Acetaminophen) 325 Mg Tab, 325 MG PO Q4HP PRN for MILD PAIN for 30 Days, MG 0 Refills 05/17/19 Loratadine (Claritin) 5 Mg/5 Ml Syp, 5 ML PO DAILY, #150 ML 2 Refills 05/17/19 Vit W/ Ferrous Fumara (PNV PLUS MULTIVI) Plus Tab, 1 OR, TAB 03/26/16 Home Meds Home medications reviewed. Current Medications Current Medications Medications (Trade) Dose Ordered Sig/Rex Route PRN Reason Start Time Stop Time Status Last Admin Sodium Chloride (Saline Lock Ns) 10 ml Q8HR IV 01/31/25 22:00 02/01/25 14:02 Docusate Sodium (Colace Capsule) 100 mg BIDPRN PRN PO FOR CONSTIPATION 01/31/25 20:30 Acetaminophen (Tylenol Tablet) 650 mg Q6HP PRN PO PAIN SCALE 1-3 OR TEMP>100.4 01/31/25 20:30 Acetaminophen/ Hydrocodone Bitart ([place] 5/325MG Tab) 1 tab Q4HP PRN PO MODERATE PAIN (4-6 PAIN SCALE) 01/31/25 20:30 Ondansetron HCl (Zofran) 4 mg Q4HP PRN IV NAUSEA / VOMITING 01/31/25 20:30 Enoxaparin Sodium (Lovenox) 40 mg DAILY SC 02/01/25 10:00 02/01/25 11:30 Review of Systems Constitutional: No symptom reported Ears, Nose, & Throat: No symptom reported Eyes: No symptom reported Neurological: Dizziness, visual disturbances Pulmonary/Respiratory: No symptom reported Cardiovascular: No symptom reported Gastrointestinal: No symptom reported Genitourinary: No symptom reported Musculoskeletal: No symptom reported Skin: No symptom reported Psychiatric: No symptom reported Endocrine: No symptom reported Hemotologic/Lymphatic: No symptom reported Vital Signs Vital Signs Date Time Temp Pulse Resp B/P (MAP) Pulse Ox O2 Delivery O2 Flow Rate FiO2 02/01/25 11:25 97.5 81 16 96/64 (75) 100 97.5 01/31/25 17:35 Room Air Physical Exam General Appearance: Cooperative. Well developed. Cachectic. In no acute distress Head Exam: Normal inspection Neck Exam: Normal inspection. Non-tender. Normal alignment Pulmonary/Respiratory: Chest non-tender. Clear bilateral breath sounds Cardiovascular/Chest: Regular rate and rhythm. S1, S2. NSR. No murmurs. No JVD. Peripheral Pulses: 2+ Radial (R). 2+ Radial (L). 2+ Pedal (R). 2+ Pedal (L) Abdominal Exam: Normal bowel sounds. Soft. Ankle Exam: Negative ankle edema Lower extremities: Negative lower extremity edema Neuro/Mental Status: A&O x4. Coherent Thoughts/Psych: Normal thought pattern. Appropriate mood and affect. Good judgement and insight Appearance: In no acute distress Skin Exam: Normal inspection. Normal color. Warm. Dry Labs/Diagnostic Data Labs Test 02/01/25 03:38 02/01/25 01:21 01/31/25 17:31 Range/Units White Blood Count 9.8 4.4-10.8 10^3/uL Red Blood Count 4.29 4.0-5.20 10^6/uL Hemoglobin 11.2 L 12.2-16.2 g/dL Hematocrit 32.9 L 36.0-46.0 % Mean Corpuscular Volume 76.8 L 80.0-100.0 fL Mean Corpuscular Hemoglobin 26.1 L 28.0-32.0 pg Mean Corpuscular Hemoglobin Concent 34.1 32.0-36.0 g/dL Red Cell Distribution Width 23.3 H 11.8-14.3 % Platelet Count 268 140-450 10^3/uL Mean Platelet Volume 6.9 6.9-10.8 fL Neutrophils (%) (Auto) 79.1 37.0-80.0 % Lymphocytes (%) (Auto) 13.7 10.0-50.0 % Monocytes (%) (Auto) 6.3 0.0-12.0 % Eosinophils (%) (Auto) 0.5 0.0-7.0 % Basophils (%) (Auto) 0.4 0.0-2.0 % Neutrophils # (Auto) 7.8 1.6-8.6 10 ^3/uL Lymphocytes # (Auto) 1.3 0.4-5.4 10 ^3/uL Monocytes # (Auto) 0.6 0-1.3 10 ^3/uL Eosinophils # (Auto) 0 0-0.8 10 ^3/uL Basophils # (Auto) 0 0-0.2 10 ^3/uL Nucleated Red Blood Cells 0.0 % Sodium Level 139 136-145 mmol/L Potassium Level 3.6 3.5-5.1 mmol/L Chloride Level 105 98-107 mmol/L Carbon Dioxide Level 23 20-31 mmol/L Anion Gap 11 5-15 Blood Urea Nitrogen 10 9-23 mg/dL Creatinine 0.87 0.550-1.02 mg/dL Glomerular Filtration Rate Calc 89 >90 mL/min BUN/Creatinine Ratio 11.5 10.0-20.0 Serum Glucose 93 74-106 mg/dL Calcium Level 9.2 8.7-10.4 mg/dL Total Bilirubin 0.7 0.2-1.0 mg/dL Aspartate Amino Transferase (AST) 17 13-40 U/L Alanine Aminotransferase (ALT) 14 7-40 U/L Alkaline Phosphatase 87 46-116 U/L Total Protein 7.5 5.7-8.2 g/dL Albumin 4.3 3.2-4.8 g/dL Troponin I High Sensitivity 66 *H </=34 ng/L Urine Color Colorless Yellow Urine Clarity Clear Clear Urine pH 6.5 5.0-9.0 Urine Specific [place] 1.003 1.001-1.035 Urine Protein Negative Negative Urine Ketones Negative Negative Urine Blood Negative Negative /uL Urine Nitrite Negative Negative Urine Bilirubin Negative Negative Urine Urobilinogen Normal Negative mg/dL Urine Leukocyte Esterase Negative Negative /uL Urine RBC None seen 0 - 4 /hpf Urine Microscopic WBC 3 0-5 /HPF Urine Squamous Epithelial Cells Mod <5 /hpf Urine Bacteria None seen None Seen /hpf Urine Glucose Normal Normal mg/dL Assessment Near syncopal event Colorectal cancer with chemotherapy NSTEMI, likely type 2 secondary to above Microcytic anemia Plan/Recommendation (Dr. Norton) Highly suspected near syncopal events secondary to chemotherapy. The patient has no risk factors for coronary artery disease, she is cardiac asymptomatic, underwent an unremarkable 12 lead electrocardiogram, and presents with a heart score of 0 points placing her at low risk for major cardiac events. There is no further cardiac workup indicated at this time. Thank you for allowing us to participate in this patient's care. Please call if you have any questions or concerns. This medical document was created using an electronic medical record system with voice recognition software and computerized dictation system. Although this document has been carefully reviewed, there might still be some phonetic and typographical errors. Occasional wrong-word or ``sound-alike substitutions may have occurred due to the inherent limitations of voice recognition software. These areas are purely typographical due to imperfections of the software pr ograms and do not reflect any compromise in the patient's medical care. Please read the chart carefully and recognize, using context, where these substitutions have occurred. Plan discussed with: Patient, Other NYHA Physical activity limitations: NA Date of Service: Feb 01, 2025 Billing Provider: GORDO MIRELES [employer] Card[facility] Common Codes: 25874-[id number] INP/OBS CARE (High) DEBI NORTON MD 02/02/25 1139: Family History: Patient reports no known family medical history. Allergies: Coded Allergies: Prochlorperazine (Verified Allergy, Intermediate, 01/31/25) Home Meds Reported Medications Acetaminophen (Acetaminophen) 325 Mg Tab, 325 MG PO Q4HP PRN for MILD PAIN for 30 Days, MG 0 Refills 05/17/19 Loratadine (Claritin) 5 Mg/5 Ml Syp, 5 ML PO DAILY, #150 ML 2 Refills 05/17/19 Vit W/ Ferrous Fumara (PNV PLUS MULTIVI) Plus Tab, 1 OR, TAB 03/26/16 Plan/Recommendation agree with [facility] assessment and plan Plan discussed with: Patient MIRELES,GORDO FNP Feb 01, 2025 14:16 DEBI NORTON MD Feb 02, 2025 11:39
[2025-02-01] MEDS: SODIUM CHLORIDE 0.9% 500 ML IV ONE (17:33)
--- NOTE | 2025-02-02 08:46 | DVHDS2 ---
Discharge Summary Date of Admission Jan 31, 2025 at 20:27 Date of Discharge: Feb 01, 2025 Admitting Diagnosis Syncope Wounds: None Labs/Diagnostic Data: Laboratory Results Test 02/01/25 03:38 02/01/25 01:21 01/31/25 17:31 White Blood Count 9.8 10^3/uL (4.4-10.8) Red Blood Count 4.29 10^6/uL (4.0-5.20) Hemoglobin 11.2 g/dL (12.2-16.2) Hematocrit 32.9 % (36.0-46.0) Mean Corpuscular Volume 76.8 fL (80.0-100.0) Mean Corpuscular Hemoglobin 26.1 pg (28.0-32.0) Mean Corpuscular Hemoglobin Concent 34.1 g/dL (32.0-36.0) Red Cell Distribution Width 23.3 % (11.8-14.3) Platelet Count 268 10^3/uL (140-450) Mean Platelet Volume 6.9 fL (6.9-10.8) Neutrophils (%) (Auto) 79.1 % (37.0-80.0) Lymphocytes (%) (Auto) 13.7 % (10.0-50.0) Monocytes (%) (Auto) 6.3 % (0.0-12.0) Eosinophils (%) (Auto) 0.5 % (0.0-7.0) Basophils (%) (Auto) 0.4 % (0.0-2.0) Neutrophils # (Auto) 7.8 10 ^3/uL (1.6-8.6) Lymphocytes # (Auto) 1.3 10 ^3/uL (0.4-5.4) Monocytes # (Auto) 0.6 10 ^3/uL (0-1.3) Eosinophils # (Auto) 0 10 ^3/uL (0-0.8) Basophils # (Auto) 0 10 ^3/uL (0-0.2) Nucleated Red Blood Cells 0.0 % Sodium Level 139 mmol/L (136-145) Potassium Level 3.6 mmol/L (3.5-5.1) Chloride Level 105 mmol/L (98-107) Carbon Dioxide Level 23 mmol/L (20-31) Anion Gap 11 (5-15) Blood Urea Nitrogen 10 mg/dL (9-23) Creatinine 0.87 mg/dL (0.550-1.02) Glomerular Filtration Rate Calc 89 mL/min (>90) BUN/Creatinine Ratio 11.5 (10.0-20.0) Serum Glucose 93 mg/dL (74-106) Calcium Level 9.2 mg/dL (8.7-10.4) Total Bilirubin 0.7 mg/dL (0.2-1.0) Aspartate Amino Transferase (AST) 17 U/L (13-40) Alanine Aminotransferase (ALT) 14 U/L (7-40) Alkaline Phosphatase 87 U/L (46-116) Total Protein 7.5 g/dL (5.7-8.2) Albumin 4.3 g/dL (3.2-4.8) Troponin I High Sensitivity 66 ng/L (</=34) Urine Color Colorless (Yellow) Urine Clarity Clear (Clear) Urine pH 6.5 (5.0-9.0) Urine Specific [place] 1.003 (1.001-1.035) Urine Protein Negative (Negative) Urine Ketones Negative (Negative) Urine Blood Negative /uL (Negative) Urine Nitrite Negative (Negative) Urine Bilirubin Negative (Negative) Urine Urobilinogen Normal mg/dL (Negative) Urine Leukocyte Esterase Negative /uL (Negative) Urine RBC None seen /hpf (0 - 4) Urine Microscopic WBC 3 /HPF (0-5) Urine Squamous Epithelial Cells Mod /hpf (<5) Urine Bacteria None seen /hpf (None Seen) Urine Glucose Normal mg/dL (Normal) Other Laboratory Tests 02/01/25 03:38 Brief Hx & Hospital Course: 35-year-old female with a stage IV colorectal cancer status post colon resection May 2024 currently on chemo last chemo came in complaining of syncopal episode. CT head was negative carotid ultrasound negative labs were normal patient has had dehydration patient is refusing IV fluids. Elevated troponin [address]-elevation [place] type 2 cardiology consult was placed. advised the patient has possible syncopal episode secondary to the chemotherapy. The patient left AMA from the ER bed 3. Consequences and complications explained to the patient and she verbalized understanding Consults/Reason for consult Cardiology Operations or Procedures None Condition at Discharge: Fair Final Diagnosis/Problems List Syncope possibly secondary to dehydrate CT head negative carotid ultrasound negative Acute dehydration patient is refusing IV fluids History of stage IV colon cancer status post colon resection May 2024, currently on chemo last chemo 12/31/2024 Elevated troponin [address]-elevation [place] type 2 Cardiology consult Discharge Disposition: AMA Discharge Instruct/Medications Diet comment: NOT APPLICABLE PATIENT LEFT AMA Activity comment: NOT APPLICABLE PATIENT LEFT AMA Follow Up/Referral: NOT APPLICABLE PATIENT LEFT AMA Medications: NOT APPLICABLE PATIENT LEFT AMA Scheduled Loratadine (Claritin), 5 ML PO DAILY, (Reported) Scheduled PRN Acetaminophen (Acetaminophen), 325 MG PO Q4HP PRN for MILD PAIN, (Reported) Miscellaneous Medications Vit W/ Ferrous Fumara (Pnv Plus Multivi), 1 OR, (Reported) 45 (TIME TAKEN FOR DISCHARGE SUMMARY 45 MINUTES) Discharge Statement: "Patient was advised to return to the ER or call 911 if any headaches, dizziness, shortness of breath, chest pain, abdominal pain, bleeding, fevers, or worsening of medical condition. Patient was counseled about treatment plan, medications, possible side effects, patientverbalized understanding. All questions were answered to the best of my ability. This discharge took greater then 30 minutes in planning, reviewing documentation, counseling the patient, and discussing with other team members." ASSESSMENT ASSESSMENT Assessment Date of Service: Feb 02, 2025 Billing Provider: FELICIA MCDONNELL MD Common Visit Codes: 80816-BFK/OBS DISCH DAY >30min FELICIA MCDONNELL MD Feb 02, 2025 08:46
--- NOTE | 2025-02-02 10:15 | DVHSR ---
APPROVED REPORT EXAM: Two-dimensional and M-mode echocardiogram with Doppler and color Doppler. Blood Pressure: 94/64 mmHg INDICATION Syncope RISK FACTORS Height: 5'6", Weight: 116 DIMENSIONS LVDd4.5 (3.8-5.7cm)LA (2D)3.5 (1.9-4.0cm)Aortic Root3.0 (2.0-3.7cm) LVDs2.9 (2.5-4.0cm)LA (MM) (1.9-4.0cm)Aortic Cusp Exc1.9 (1.5-2.0cm) EF (%) 60.0 (55-70%)Rt. Atrium3.3 (1.9-4.0cm)Asc. Aorta cm IVSd0.8 (0.7-1.1cm)RV (D) (1.8-2.4cm) PWd0.8 (0.7-1.1cm) Mitral Valve MitralMitral Stenosis E wave0.79m/sMV Mean GR.mmHg A wave0.73m/sMV Peak GR.mmHg E/A ratio1.12D MVAcm2 DECEL [id number] 1/2 Timems Aortic Valve Aortic ValveAortic Stenosis V10.93m/Edward Mean GR.3mmHg V21.16m/Edward Peak GR.5mmHg LVOT Diameter2.0 (1.8-2.4cm)Doppler AVA2.52cm2 Pulmonic Valve V20.90m/s Tricuspid Valve TR Velocity2.01m/s [id number] Other Information Technically limited study due to body habitus. Conclusion lvef 60% normal rv function normal atria no severe valve abnormalities noted normal pericardium
--- NOTE | 2025-02-03 07:44 | ECG ---
[facility] Test Date: 2025-01-31 Test Time: 16:30:34 Pat Name: RACHEL STEPHENS Department: [facility] ED Patient ID: [facility]-[id number] Room: [address] [place] [address] Gender: F Hat Binder: CESAR KOROMAB: 1990 Requested By: PREET HATFIELD Order Number: [id number] Reading MD: Maurice Lama Measurements Intervals [place] Rate: 82 P: 90 VT: 125 QRS: 92 QRSD: 95 T: 32 QT: 377 QTc: 441 Interpretive Statements Sinus rhythm Probable left atrial enlargement Borderline right axis deviation Borderline repolarization abnormality Baseline wander in lead(s) V3 Electronically Signed On 02-03-2025 18:16:34 PDT by Maurice Lama Please click the below link to view image of tracing.
--- NOTE | 2025-02-03 07:54 | ECG ---
[facility] Test Date: 2025-02-01 Test Time: 14:20:22 Pat Name: RACHEL STEPHENS Department: ED Room: [address] [place] [address] A Gender: F Staffing Manager: tobi : 1990 Requested By: GORDO MIRELES Order Number: [id number] Reading MD: Maurice Lama Measurements Intervals [place] Rate: 71 P: 69 [place]: 114 QRS: 84 QRSD: 96 T: 36 QT: 389 QTc: 423 Interpretive Statements Sinus rhythm Borderline short [place] interval Probable left atrial enlargement Borderline repolarization abnormality Electronically Signed On 02-03-2025 18:20:00 PDT by Maurice Lama Please click the below link to view image of tracing.
== END 2025-02-01 19:41 | disposition left against medical advice (07) | DRG 422 ==
LOC: EDUNIT# 16:23 → EDBD 16:23 → ER 16:23 → OVERFLOW 20:27
PROVIDERS: ADMIT Internal Medicine; ATTEND Internal Medicine
DX: E86.0 Dehydration (principal); I21.A1 Myocardial infarction type 2; D50.9 Iron deficiency anemia, unspecified; Z53.29 Procedure and treatment not carried out because of patient's decision for other reasons; Z79.899 Other long term (current) drug therapy; Z85.048 Personal history of other malignant neoplasm of rectum, rectosigmoid junction, and anus; Z90.49 Acquired absence of other specified parts of digestive tract; Z88.8 Allergy status to other drugs, medicaments and biological substances
CPT/HCPCS: 36415; 70450; 70551; 80048; 80053; 81001; 84484; 85025; 93005; 93306; 93886; 96360; G0378